=== PATIENT | male | born 1945 | race Caucasian/White ===

== ENCOUNTER 2017-10-04 21:47 | Inpatient (IN) | payer OTHER ==
--- NOTE | 2017-10-04 21:51 | PDOC ---
History of Present Illness - General Chief Complaint: Respiratory Stated Complaint: FEVER AND WEAK Time Seen by Provider: 10/04/17 21:51 History Source: Patient Exam Limitations: No Limitations - History of Present Illness Initial Comments: 10/04/17 22:04 This is a 72-year-old male who comes in with his son for evaluation of fever. Patient has had fever 1 day today. Patient is primary Armenian-speaking and history is primarily by the son. Patient lives with his and not the son. Patient denies any complaints other than fever. Patient denies any cough, congestion, frequency, dysuria, back pain, flank pain, abdominal pain, nausea, vomiting or diarrhea. Patient has history significant for hypertension, high cholesterol, and diabetes. Patient takes metformin. Patient is on Coumadin status post valve replacement. PAST MEDICAL HISTORY: no significant history PAST SURGICAL HISTORY: Heart valve replacement and pacemaker many years ago greater than 10 years ago FAMILY HISTORY: no pertinant history SOCIAL HISTORY: Pt lives with family and is employed. MEDICATIONS: reviewed ALLERGIES: As per nursing notes Review of Systems General: No fevers or chills, no weakness, no weight loss HEENT: No change in vision. No sore throat,. No ear pain CardioVascular: No chest pain or shortness of breath Respiratory:No cough, or wheezing. Gastrointestinal: no nausea, vomitting, diarrhea or constipation, No rectal bleeding Genitourinary: No dysuria, hematuria, or frequency Musculoskeletal: No joint or muscle pain or swelling Neurologic: No headache, vertigo, dizziness or loss of consciousness Psychiatric: nor depression Skin: No rashes or easy bruising Endocrine: no increased thirst or abnormal weight change Allergic: no skin or latex allergy All other systems reviewed and normal Exam: General: Well-nourished well-developed individual, no acute distress HEENT: Throat: Normal, tonsils normal, no erythema or exudate Neck: Supple, no meningeal signs, no lymphadenopathy Eyes::Pupils equal reactive and round, extraocular motion intact Chest: Nontender to palpation Cardiac: S1-S2 normal, regular rate and rhythm, no murmurs rubs or gallops Respiratory: Lungs clear to auscultation bilateral Abdomen: Soft, nondistended, normal bowel sounds, nontender to palpation diffusely Extremities: Warm, dry, no cyanosis, clubbing, or edema Skin: On patient's back There are multiple superficial skin abscesses none of which appear to be more than just a pimple. None of them have any tenderness, discharge or fluctuance on palpation Neuro: Alert and oriented x3, CN II - XII intact, nonfocal exam with normal strength, normal sensation, normal reflexes, normal gait, Psych: Normal mood and affect Medical decision making: This is a 72-year-old diabetic patient with history of fever times today. Patient had a fever of 101.5 orally in the emergency room. Patient had taken some Motrin approximately 4 hours prior to coming in. Patient otherwise denied any complaints. Workup initiated including: CBC, comp metabolic profile, EKG, chest x-ray, PT as patient is on warfarin, blood cultures, urinalysis and urine culture. Chest x-ray shows no acute pathology, there is cardiomegaly with some mild pulmonary vascular congestion EKG shows sinus rhythm at a rate of 68 with first-degree AV block. In addition to that there is inverted T's in V3 through V8, possible lateral ischemia. The QT is prolonged as well. Assessment and plan: This is a 72-year-old male who comes in with fever of unknown origin. Patient had a workup that had a normal white count the differential was still pending at this time. Patient's chemistries showed a sodium of 129 and a glucose of 276 otherwise were unremarkable specifically there is no anion gap and the bicarbonate was normal. Patient is on Coumadin because of his heart valve replacement. Patient's INR was 16.4. \ Patient will be placed in an observation telemetry bed to the hospitalist service Dr. Reza will be the admitting doctor. Diagnoses includes hyponatremia, hyperglycemia and fever of unknown origin. 10/04/17 23:07 Past History - Past Medical History Allergies/Adverse Reactions: Allergies Allergy/AdvReac Type Severity Reaction Status Date / Time No Known Allergies Allergy Verified 10/04/17 21:55 Home Medications: Ambulatory Orders Ibuprofen [Advil -] 400 mg PO BID PRN 10/04/17 Memantine HCl [Namenda Xr] 7 mg PO DAILY 10/04/17 Metformin HCl [Glucophage] 1,000 mg PO DAILY 10/04/17 Metoprolol Succinate [Toprol Xl -] 50 mg PO DAILY 10/04/17 Pravastatin Sodium [Pravachol (Nf)] 20 mg PO DAILY 10/04/17 Warfarin Na [Coumadin] 3 mg PO HS 10/04/17 Cardiac Disorders: Yes Diabetes: Yes HTN: Yes - Surgical History Cardiac Surgery: Yes (pacemaker) - Suicide/Smoking/Psychosocial Hx Smoking Status: No Smoking History: Former smoker Number of Cigarettes Smoked Daily: 0 ED Treatment Course - LABORATORY CBC & Chemistry Diagram: 10/04/17 22:05 10/04/17 22:05 *DC/Admit/Observation/Transfer Diagnosis at time of Disposition: Fever, unknown origin - Discharge Dispostion Condition at time of disposition: Fair Admit: Yes - Referrals Referrals: Alan Carballo [Primary Care Provider] - - Patient Instructions - Post Discharge Activity
[2017-10-04] MEDS ORDERED: ACETAMINOPHEN 500 MG TABLET (FP) PO ONE (22:00)
[2017-10-04] MEDS ORDERED: SODIUM CHLORIDE 1,000 ML IV ONE (22:08)
[2017-10-04 22:19] LABS: PH,URINE 5.5 (4.5-8); URINE APPEARANCE Clear; URINE BILIRUBIN 1+ (NEGATIVE); URINE BLOOD 1+ (NEGATIVE); URINE COLOR YELLOW; URINE GLUCOSE (UA) 1+ (NEGATIVE); URINE KETONE 1+ (NEGATIVE); URINE LEUK ESTERASE Negative (NEGATIVE); URINE NITRITE Negative (NEGATIVE); URINE PROTEIN 2+ (NEGATIVE); URINE UROBILINOGEN 0.2 (0.2-1.0)
[2017-10-04 22:27] LABS: MCH 29.8 pg (25.7-33.7); MCHC 32.6 g/dl (32.0-35.9); MEAN CELL VOLUME 91.2 fl (80-96); PLATELET COUNT 158 K/MM3 (134-434); RDW 12.8 % (11.9-15.9); WHITE BLOOD COUNT 9.4 K/mm3 (4.0-10.8)
[2017-10-04 22:33] LABS: INR 1.64 (0.82-1.09); PROTHROMBIN TIME (PATIENT) 18.2 SEC (10.2-13.0)
[2017-10-04 22:37] LABS: ALK PHOS 70 U/L (32-92); ANION GAP 9 (8-16); BILIRUBIN,TOTAL 0.8 mg/dl (0.2-1.0); CALCIUM 8.5 mg/dl (8.4-10.2); CO2 21 mmol/L (22-28); GLUCOSE,RANDOM 276 mg/dl (74-106); SGOT/AST 29 U/L (10-42); SGPT/ALT 23 U/L (10-40); TOT PROT 6.7 g/dl (6.4-8.3)
[2017-10-04 22:51] LABS: TROPONIN I (DFP) 0.03 ng/ml (0.03-0.50)
[2017-10-04 22:54] LABS: URINE MUCUS 1+
[2017-10-05 00:05] VITALS: BMI 19.9
[2017-10-05] MEDS ORDERED: VANCOMYCIN 1,000 MG in DEXTROSE 5%-WATER - 250 ML IVPB ONE (00:53)
[2017-10-05] MEDS ORDERED: GENTAMICIN 80 MG PREMIXED IVPB 80 MG/100 ML BAG IVPB ONE (00:59)
[2017-10-05] MEDS ORDERED: CEFEPIME HCL 2 GM VIAL (RESTRICTED TO ID) IVPB ONE (01:02)
[2017-10-05] MEDS ORDERED: SODIUM CHLORIDE 1,000 ML IV SCH (01:15)
[2017-10-05] MEDS: WARFARIN NA 2 MG TABLET (UD) PO SCH ×2 (01:24→18:34)
--- NOTE | 2017-10-05 01:51 | HP ---
CHIEF COMPLAINT: fever PCP: Haris HISTORY OF PRESENT ILLNESS: This is a 72 year old male with a history of bioprosthetic valve placement over 10 years ago who presented to the ED with fever x 1 day. Son states he spoke to father Thursday evening and he was fine/in his usual state of health. Pt denies any other complaints. Patient denies any cough, congestion, frequency, dysuria, back pain, flank pain, abdominal pain, nausea, vomiting or diarrhea. ER course was notable for: (1) WBC 9.4, 22% bands (2) Temp 101.5 (3) BGM 276 Recent Travel: pt denies PAST MEDICAL HISTORY: DM, HLD, HTN, dementia PAST SURGICAL HISTORY: bioprosthetic valve and PPM placement >10y ago Social History: Smoking: pt denies Alcohol: pt denies Drugs: pt denies Family History: unk Allergies No Known Allergies Allergy (Verified 10/04/17 21:55) HOME MEDICATIONS: 3 Medication Instructions Recorded Ibuprofen [Advil -] 400 mg PO BID PRN 10/04/17 Metformin HCl [Glucophage] 1,000 mg PO DAILY 10/04/17 Metoprolol Succinate [Toprol Xl -] 50 mg PO DAILY 10/04/17 Pravastatin Sodium [Pravachol (Nf)] 20 mg PO DAILY 10/04/17 Warfarin Na [Coumadin] 3 mg PO HS 10/04/17 REVIEW OF SYSTEMS CONSTITUTIONAL: Present: fever, chills Absent: diaphoresis, generalized weakness, malaise, loss of appetite, weight change HEENT: Absent: rhinorrhea, nasal congestion, throat pain, throat swelling, difficulty swallowing, mouth swelling, ear pain, eye pain, visual changes CARDIOVASCULAR: Absent: chest pain, syncope, palpitations, irregular heart rate, lightheadedness , peripheral edema RESPIRATORY: Absent: cough, shortness of breath, dyspnea with exertion, orthopnea, wheezing, stridor, hemoptysis GASTROINTESTINAL: Absent: abdominal pain, abdominal distension, nausea, vomiting, diarrhea, constipation, melena, hematochezia GENITOURINARY: Absent: dysuria, frequency, urgency, hesitancy, hematuria, flank pain, genital pain MUSCULOSKELETAL: Absent: myalgia, arthralgia, joint swelling, back pain, neck pain SKIN: Absent: rash, itching, pallor HEMATOLOGIC/IMMUNOLOGIC: Absent: easy bleeding, easy bruising, lymphadenopathy, frequent infections ENDOCRINE: Absent: unexplained weight gain, unexplained weight loss, heat intolerance, cold intolerance NEUROLOGIC: Absent: headache, focal weakness or paresthesias, dizziness, unsteady gait, seizure, mental status changes, bladder or bowel incontinence PSYCHIATRIC: Absent: anxiety, depression, suicidal or homicidal ideation, hallucinations. PHYSICAL EXAMINATION Vital Signs - 24 hr 3 10/04/17 10/04/17 10/04/17 10/05/17 21:48 22:49 23:18 00:22 Temperature 101.5 F H 99.5 F 99.5 F 98.6 F Pulse Rate 79 59 L Pulse Rate [ 68 Left] Respiratory 18 18 18 17 Rate Blood Pressure 94/52 109/45 Blood Pressure 105/49 [Right] O2 Sat by Pulse 95 95 95 95 Oximetry (%) GENERAL: Awake, alert, and fully oriented, in no acute distress. appears pale and weak, unable to sit up on own HEAD: Normal with no signs of trauma. EYES: Pupils equal, round and reactive to light, extraocular movements intact, sclera anicteric, conjunctiva clear. No lid lag. EARS, NOSE, THROAT: Ears normal, TMs clear, good light reflex, nares patent, oropharynx clear without exudates. Moist mucous membranes. NECK: Normal range of motion, supple without lymphadenopathy, JVD, or masses. LUNGS: Breath sounds equal, clear to auscultation bilaterally. No wheezes, and no crackles. No accessory muscle use. HEART: Regular rate and rhythm, normal S1 and S2 without rub or gallop. + murmur 2/6 loudest 2nd&3rd ICS LSB ABDOMEN: Soft, nontender, not distended, normoactive bowel sounds, no guarding, no rebound, no masses. No hepatomegaly or splenomegaly. MUSCULOSKELETAL: Normal range of motion at all joints. No bony deformities or tenderness. No CVA tenderness. UPPER EXTREMITIES: 2+ pulses, warm, well-perfused. No cyanosis. No clubbing. No peripheral edema. LOWER EXTREMITIES: 2+ pulses, warm, well-perfused. No calf tenderness. No peripheral edema. NEUROLOGICAL: Cranial nerves II-XII intact. Normal speech. Normal gait. PSYCHIATRIC: Cooperative. Good eye contact. Appropriate mood and affect. SKIN: Warm, dry, normal turgor, no rashes noted, normal capillary refill. healed or healing lesions noted to lower back, scab noted over left 4th finger distal PIP, surrouding skin with mild erythema, no tenderness or fluctuance noted. no splinter hemorrhages of nail beds or petechiae noted. Laboratory Results - last 24 hr 3 10/04/17 10/04/17 10/04/17 10/05/17 22:05 22:05 22:05 00:19 WBC 9.4 RBC 3.88 L Hgb 11.5 L Hct 35.4 MCV 91.2 MCH 29.8 MCHC 32.6 RDW 12.8 Plt Count 158 MPV 8.0 Neutrophils % Auto V[employer] Top Installer Neutrophils % (Manual) 71.0 Band Neutrophils % 22.0 H Lymphocytes % Auto [employer]er Lymphocytes % (Manual) 5.0 L Monocytes % Auto [employer] Top Installer Monocytes % (Manual) 1 L Eosinophils % Auto [employer]er Eosinophils % (Manual) 1.0 Basophils % Auto [employer] Installer PT with INR 18.2 H INR 1.64 H Sodium 129 L Potassium 4.0 Chloride 99 Carbon Dioxide 21 L Anion Gap 9 BUN 24 H Creatinine 1.0 Creat Clearance w eGFR > 60 POC Glucometer 255 Random Glucose 276 H Calcium 8.5 Total Bilirubin 0.8 AST 29 ALT 23 Alkaline Phosphatase 70 Creatine Kinase 97 Troponin I 0.03 Total Protein 6.7 Albumin 3.0 L Urine Color Urine Appearance Urine pH Ur Specific [place] Urine Protein Urine Glucose (UA) Urine Ketones Urine Blood Urine Nitrite Urine Bilirubin Urine Urobilinogen Ur Leukocyte Esterase Urine RBC Urine WBC Ur Epithelial Cells Amorphous Urates Urine Casts Urine Mucus 3 Urine Color Yellow 10/04/17 22:05 Urine Appearance Clear 10/04/17 22:05 Urine pH 5.5 (4.5-8) 10/04/17 22:05 Ur Specific [place] 1.025 (1.005-1.025) 10/04/17 22:05 Urine Protein 2+ (NEGATIVE) H 10/04/17 22:05 Urine Glucose (UA) 1+ (NEGATIVE) H 10/04/17 22:05 Urine Ketones 1+ (NEGATIVE) H 10/04/17 22:05 Urine Blood 1+ (NEGATIVE) H 10/04/17 22:05 Urine Nitrite Negative (NEGATIVE) 10/04/17 22:05 Urine Bilirubin 1+ (NEGATIVE) H 10/04/17 22:05 Ur Leukocyte Esterase Negative (NEGATIVE) 10/04/17 22:05 Urine RBC 4-6 /hpf (0-3) 10/04/17 22:05 Urine WBC 5-10 (0-2) 10/04/17 22:05 Ur Epithelial Cells 3-5 /HPF 10/04/17 22:05 Urine Mucus 1+ 10/04/17 22:05 ECG sinus rhythm with sinus arrhythmia with 1st degree AV block vent rate 68, QTC 489-prolonged ST and marked T wave abnormality: TWI lead 2,3,aVF, V3-V6 Radiology Reports CXR-no obvious infiltrates or effusions, report pending ASSESSMENT/PLAN: 72yM with PMH DM, HTN, HLD, Aflutter, bioprosthetic valve and PPM placement presented to the ED with fever and shaking chills without any other symptoms. Fever - given history of bioprosthetic valve and lack of other symptoms will treat for suspected endocarditis - echo in am - rapid flu pending - tylenol for fever PRN - received 1L NS @ 200cc/hr, will start 100cc/hr - lactic acid pending hyponatremia - ? r/t dehydration due to insensible losses - repeat bmp now, cont IVF DM - hold metformin while inpatient - BGM TIDAC and HS with novolog sliding scale HTN - cont home toprol HLD - home pravachol to be changed to formulary lipitor afib/flutter - in sinus rhythm now - coumadin subtherapeutic- will increase dose to 4mg and check INR daily DVT PPX - pt currently admitted to OBS, expected LOS <48, defer PPX FEN - NS @ 100cc/hr - BMP in am - Diabetic diet in am Dispo: Pt currently requires inpatient observation for management of his emergent condition. Visit type - Emergency Visit Emergency Visit: Yes ED Registration Date: 10/04/17 Care time: The patient presented to the Emergency Department on the above date and was hospitalized for further evaluation of their emergent condition. - New Patient This patient is new to me today: Yes Date on this admission: 10/05/17 - Critical Care Critical Care patient: No
[2017-10-05 02:24] LABS: ANION GAP 11 (8-16); CALCIUM 7.3 mg/dL (8.5-10.1); CO2 22 mmol/L (21-32); CREATININE 1.2 mg/dL (0.7-1.3); GLUCOSE,RANDOM 235 mg/dL (74-106)
[2017-10-05 02:34] LABS: TROPONIN I 0.05 ng/ml (0.00-0.05)
[2017-10-05] MEDS ORDERED: POTASSIUM CHLORIDE TABS 20 MEQ TABLET.ER (FP) PO ONE (02:54)
[2017-10-05] MEDS: ACETAMINOPHEN 325 MG TABLET (FP) PO PRN ×3 (03:13→21:36)
[2017-10-05] MEDS ORDERED: INSULIN (NOVOLOG) ASPART 100 UNITS/ML 10ML VIAL ONE ×2 (06:41→12:24)
[2017-10-05] MEDS: INSULIN SLIDING SCALE (NOVOLOG) 1 VIAL SQ SCH ×4 (06:47→22:01)
--- NOTE | 2017-10-05 08:08 | PN ---
Physical Exam: SUBJECTIVE: Patient seen and examined, confused appears comfortable, denies any pain OBJECTIVE: patient is 72y/o male with a past medical history of DM, HLD, HTN, dementia. patient was admitted from the emergency department for fever of unknown origin Vital Signs Period Temp Pulse Resp BP Sys/Tan Pulse Ox Last 24 Hr 98.6 F-101.5 F 59-79 17-18 94-109/45-52 95-96 GENERAL: The patient is awake, alert, and fully oriented, in no acute distress. HEAD: Normal with no signs of trauma. EYES: PERRL, extraocular movements intact, sclera anicteric, conjunctiva clear. No ptosis. ENT: Ears normal, nares patent, oropharynx clear without exudates, dry mucous membranes. NECK: Trachea midline, full range of motion, supple. LUNGS: Breath sounds equal, clear to auscultation bilaterally, no wheezes, no crackles, no accessory muscle use. HEART: iregular rate and rhythm, S1, S2, 3/6 systolic murmur, rub or gallop. ABDOMEN: Soft, nontender, nondistended, normoactive bowel sounds, no guarding, no rebound, no hepatosplenomegaly, no masses. EXTREMITIES: 2+ pulses, warm, well-perfused, no edema. NEUROLOGICAL: Cranial nerves II through XII grossly intact. Normal speech, gait not observed. PSYCH: Normal mood, normal affect. SKIN: Warm, dry, normal turgor, no rashes or lesions noted Laboratory Results - last 24 hr CBC WBC 7.9 K/mm3 (4.0-10.8) 10/05/17 07:30 RBC 3.91 M/mm3 (4.00-5.60) L 10/05/17 07:30 Hgb 12.2 GM/dl (11.7-16.9) 10/05/17 07:30 Hct 35.8 % (35.4-49) 10/05/17 07:30 MCV 91.4 fl (80-96) 10/05/17 07:30 MCH 31.1 pg (25.7-33.7) 10/05/17 07:30 MCHC 34.0 g/dl (32.0-35.9) 10/05/17 07:30 RDW 12.8 % (11.9-15.9) 10/05/17 07:30 Plt Count 100 K/MM3 (134-434) L D 10/05/17 07:30 MPV 7.9 fl (7.5-11.1) 10/05/17 07:30 Neutrophils % 94.3 % (42.8-82.8) H 10/05/17 07:30 Neutrophils % (Manual) 71.0 % (42.8-82.8) 10/04/17 22:05 Band Neutrophils % 22.0 % (0-10) H 10/04/17 22:05 Lymphocytes % 2.5 % (8-40) L 10/05/17 07:30 Lymphocytes % (Manual) 5.0 % (8-40) L 10/04/17 22:05 Monocytes % 3.1 % (3.8-10.2) L 10/05/17 07:30 Monocytes % (Manual) 1 % (3.8-10.2) L 10/04/17 22:05 Eosinophils % 0.1 % (0-4.5) 10/05/17 07:30 Eosinophils % (Manual) 1.0 % (0-4.5) 10/04/17 22:05 Basophils % 0.0 % (0-2.0) 10/05/17 07:30 ESR 81 mm/hr (0-20) H 10/05/17 07:30 CMP Sodium 129 mmol/L (136-145) L 10/05/17 07:30 Potassium 3.7 mmol/L (3.5-5.1) 10/05/17 07:30 Chloride 100 mmol/L (98-107) 10/05/17 07:30 Carbon Dioxide 20 mmol/L (22-28) L 10/05/17 07:30 Anion Gap 9 (8-16) 10/05/17 07:30 BUN 34 mg/dl (7-18) H D 10/05/17 07:30 Creatinine 1.5 mg/dl (0.6-1.3) H D 10/05/17 07:30 Creat Clearance w eGFR > 60 (>60) 10/04/17 22:05 POC Glucometer 241 UNITS (80-120) 10/05/17 12:20 Random Glucose 233 mg/dl (74-106) H 10/05/17 07:30 Lactic Acid 2.0 mmol/L (0.4-2.0) 10/05/17 01:17 Calcium 8.0 mg/dl (8.4-10.2) L 10/05/17 07:30 Phosphorus 2.2 mg/dl (2.5-4.6) L 10/05/17 07:30 Magnesium 1.6 mg/dL (1.8-2.4) L 10/05/17 07:30 Total Bilirubin 0.8 mg/dl (0.2-1.0) 10/04/17 22:05 AST 29 U/L (10-42) 10/04/17 22:05 ALT 23 U/L (10-40) 10/04/17 22:05 Alkaline Phosphatase 70 U/L (32-92) 10/04/17 22:05 Creatine Kinase 122 IU/L (39-308) 10/05/17 07:30 Troponin I 0.10 ng/ml (0.03-0.50) D 10/05/17 07:30 C-Reactive Protein 15.9 MG/DL (0.00-0.3) H 10/05/17 07:30 Total Protein 6.7 g/dl (6.4-8.3) 10/04/17 22:05 Albumin 3.0 g/dl (3.5-5.0) L 10/04/17 22:05 Active Medications Generic Name Dose Route Start Last Admin Trade Name Freq PRN Reason Stop Dose Admin Acetaminophen 650 mg 10/05/17 01:05 10/05/17 03:13 Tylenol - PO 650 mg Q4H PRN Administration FEVER OR PAIN Atorvastatin Calcium 10 mg 10/05/17 22:00 Lipitor - PO HS [facility] Sodium Chloride 1,000 mls @ 100 mls/hr 10/05/17 01:15 10/05/17 01:20 Normal Saline - IV 100 mls/hr ASDIR KRISTEN Administration Insulin Aspart 1 vial 10/05/17 22:00 Novolog Vial Sliding Scale - SQ HS KRISTEN Protocol Insulin Aspart 1 vial 10/05/17 07:00 10/05/17 06:47 Novolog Vial Sliding Scale - SQ 3 units TIDAC KRISTEN Administration Protocol Metoprolol Succinate 50 mg 10/05/17 10:00 Toprol Xl - PO DAILY KRISTEN Warfarin Sodium 4 mg 10/05/17 01:00 10/05/17 01:24 Coumadin - PO 4 mg DAILY@1800 KRISTEN Administration ekg sinus rhythm with sinus arrhythmia with 1st degree AV block vent rate 68, QTC 489-prolonged ST and marked T wave abnormality: TWI lead 2,3,aVF, V3-V6 Radiology Reports CXR-no obvious infiltrates or effusions, report pending ASSESSMENT/PLAN: 72yM with PMH DM, HTN, HLD, Aflutter, bioprosthetic valve and PPM placement presented to the ED with fever and shaking chills without any other symptoms. 1) heme Fever - pending echo, continue vanc and cefepipime given history of bioprosthetic valve - lactic acid wnl, pt afebrile no leukocytosis noted thrombocytopenia - likely secondary to sepsis, f/u blood cultures - ID, Dr Harry consulted and followed 2) cardiovascular afib (parosysmal) - continue toprol and coumadin hld - continue lipitor 3) niddm - fingersticks achs 4) f/e/n hyponatremia - corrected serum sodium 132, secondary to hypovolemia - continue ns @75ml.hr DVT PPX - pt currently admitted to OBS, expected LOS <48, defer PPX Dispo: Pt currently requires inpatient observation for management of his emergent condition. Visit type - Emergency Visit Emergency Visit: Yes ED Registration Date: 10/04/17 Care time: The patient presented to the Emergency Department on the above date and was hospitalized for further evaluation of their emergent condition. - New Patient This patient is new to me today: Yes Date on this admission: 10/05/17 - Critical Care Critical Care patient: No - Discharge Referral Referred to [facility] Med P.C.: Yes
[2017-10-05 08:25] LABS: ANION GAP 9 (8-16); CO2 20 mmol/L (22-28); CREATININE 1.5 mg/dl (0.6-1.3); GLUCOSE,RANDOM 233 mg/dl (74-106); MAGNESIUM 1.6 mg/dL (1.8-2.4); PHOSPHOROUS 2.2 mg/dl (2.5-4.6)
[2017-10-05 08:28] LABS: INR 1.93 (0.82-1.09); PROTHROMBIN TIME (PATIENT) 21.3 SEC (10.2-13.0)
--- NOTE | 2017-10-05 08:33 | EKG ---
Test Reason : Blood Pressure : / mmHG Vent. Rate : 068 BPM Atrial Rate : 068 BPM P-R Int : 300 ms QRS Dur : 084 ms QT Int : 460 ms P-R-T Axes : 108 084 -81 degrees QTc Int : 489 ms SINUS RHYTHM WITH SINUS ARRHYTHMIA WITH 1ST DEGREE A-V BLOCK PROLONGED QT ABNORMAL ECG WHEN COMPARED WITH ECG OF 26-AUG-2013 01:28, Ventricular pacing IS NO LONGER PRESENT VA INTERVAL HAS INCREASED T WAVE INVERSION NOW EVIDENT IN INFERIOR LEADS T WAVE INVERSION MORE EVIDENT IN ANTEROLATERAL LEADS Confirmed by JORGITO MIRAMONTES, TWYLA ([id number]) on 10/05/2017 8:33:12 AM Referred By: DR GARRISON Confirmed By:TWYLA BULL MD
[2017-10-05 08:38] LABS: EOSINOPHIL 0.1 % (0-4.5); MCH 31.1 pg (25.7-33.7); MEAN CELL VOLUME 91.4 fl (80-96); MEAN PLT VOLUME 7.9 fl (7.5-11.1); NEUTROPHILS 94.3 % (42.8-82.8); PLATELET COUNT 100 K/MM3 (134-434); RDW 12.8 % (11.9-15.9); WHITE BLOOD COUNT 7.9 K/mm3 (4.0-10.8)
[2017-10-05] MEDS ORDERED: MAGNESIUM SULFATE 2 GM in SODIUM CHLORIDE 100 ML IVPB ONE (08:48)
[2017-10-05 09:11] LABS: TROPONIN I (DFP) 0.1 ng/ml (0.03-0.50)
[2017-10-05] MEDS ORDERED: MAGNESIUM SULF 50% (8.12 MEQ/2 ML-1 GM VIAL) IVPB ONE (09:30)
[2017-10-05] MEDS ORDERED: SODIUM PHOSPHATE IVPB ONE (10:00)
[2017-10-05] MEDS ORDERED: SODIUM CHLORIDE IVPB ONE (10:00)
--- NOTE | 2017-10-05 10:09 | PN ---
Progress Note, Physician History of Present Illness: ID Consult dictated 72 y/o diabetic male s/p valve replacement admitted with fever No obvious identifiable focus Uncontrolled DM Hyponatremia Thrombocytopenia Pending c/s empiric vancomycin/ ceftriaxone - Current Medication List Current Medications: Active Medications Acetaminophen (Tylenol -) 650 mg PO Q4H PRN PRN Reason: FEVER OR PAIN Last Admin: 10/05/17 03:13 Dose: 650 mg Atorvastatin Calcium (Lipitor -) 10 mg PO HS KRISTEN Sodium Chloride (Normal Saline -) 1,000 mls @ 100 mls/hr IV ASDIR KRISTEN Last Admin: 10/05/17 01:20 Dose: 100 mls/hr Sodium Phosphate 15 mm/ Sodium (Chloride) 250 mls @ 41.667 mls/hr IVPB ONCE ONE Stop: 10/05/17 15:59 Insulin Aspart (Novolog Vial Sliding Scale -) 1 vial SQ HS KRISTEN PRN Reason: Protocol Insulin Aspart (Novolog Vial Sliding Scale -) 1 vial SQ TIDAC KRISTEN PRN Reason: Protocol Last Admin: 10/05/17 06:47 Dose: 3 units Metoprolol Succinate (Toprol Xl -) 50 mg PO DAILY KRISTEN Warfarin Sodium (Coumadin -) 4 mg PO DAILY@1800 KRISTEN Last Admin: 10/05/17 01:24 Dose: 4 mg - Objective Vital Signs: Vital Signs Temperature 98.6 F 10/05/17 05:06 Pulse Rate 79 10/05/17 05:06 Respiratory Rate 18 10/05/17 05:06 Blood Pressure 102/49 10/05/17 05:06 O2 Sat by Pulse Oximetry (%) 95 10/05/17 01:06 Labs: CBC, BMP 10/05/17 07:30 10/05/17 07:30 INR, PTT INR 1.93 (0.82-1.09) H 10/05/17 07:30
[2017-10-05] MEDS: METOPROLOL SUCCINATE 50 MG TAB.SR.24H (FP) PO SCH (10:20)
[2017-10-05] MEDS ORDERED: CEFEPIME HCL 1 GM VIAL (RESTRICTED TO ID) IVPB SCH (10:30)
[2017-10-05] MEDS ORDERED: SODIUM CHLORIDE 0.9%/KCL 20 MEQ/1,000 ML INFUS.BAG IV SCH (11:15)
--- NOTE | 2017-10-05 11:31 | CONS ---
DATE OF CONSULTATION: HISTORY: The patient is a 72-year-old male who was evaluated for fever. History was obtained from the chart as he cannot give a reliable history. He is [place]ian-speaking. According to his lang interpreter, he appears confused. He was brought to the emergency room by family members on October 04, 2017 with a 1-day history of fever. He denied any focal complaints. A rapid influenza test was performed and was negative. In the emergency room, his temperature was 101.5. He was empirically treated with vancomycin and cefepime. No reports of shaking chills, labored breathing, cough, sputum production, hemoptysis, vomiting, diarrhea, or grossly purulent urine. According to the notes, he has a history of valve replacement. Additional details are not available. PAST MEDICAL HISTORY: Positive for diabetes mellitus, hypertension, hyperlipidemia. PAST SURGICAL HISTORY: Status post permanent pacemaker and cardiac valve replacement. Again, details not available. ALLERGIES: No known allergies. MEDICATIONS: Advair, Namenda, Glucophage, Toprol, Pravachol, Coumadin. SOCIAL HISTORY: Lives at home with family members. Former smoker. SYSTEMS REVIEW: Neurologic: No loss of consciousness, seizure activity, focal weakness. Cardiac: Negative chest pain or palpitations. Respiratory: Negative cough or sputum production. Gastrointestinal: Negative vomiting or diarrhea. Genitourinary: Negative for urinary tract infection. LABORATORY DATA: White count 7.9, neutrophils 94, lymphocytes 2, monocytes 3. Hematocrit 35.8, platelet count 100, BUN 34, creatinine 1.5. Urinalysis: 5-10 white cells. PHYSICAL EXAMINATION: General: He is awake. He appears slightly confused. Vital Signs: Temperature 98.6, T-max 101.5, blood pressure 102/48, pulse 79 and regular, respirations 18 per minute. HEENT: Sclerae anicteric. Heart: Sounds S1, S2 with a 2/6 pansystolic murmur. Lungs: Clear bilaterally. Abdomen: Soft. No tenderness elicited. There is a healed surgical scar over the sternum as well as the lower abdomen. Extremities: Negative for edema. Positive chronic venostasis dermatitis. IMPRESSION: A 72-year-old diabetic male with a history of cardiac valve replacement admitted with fever. No obvious infection focus. Workup significant for normal white count with left shift, elevated blood sugar, hyponatremia, and thrombocytopenia. Await culture results. Empiric antibiotic coverage with vancomycin and cefepime pending culture results. We will follow. Thank you for the kind referral. CONNER PENDLETON M.D. [id number]
[2017-10-05] MEDS ORDERED: PT OWN MED DRAWER 7, Y5N ONE ×2 (12:06→18:29)
[2017-10-05] MEDS: CEFEPIME 1 GM in DEXTROSE 5%-WATER - 100 ML IVPB SCH ×2 (12:09→18:34)
[2017-10-05] MEDS: VANCOMYCIN 1 GRAM (PRE-DOCKED) 1,000 MG/250 ML BAG IVPB SCH (14:44)
[2017-10-05 18:39] LABS: ANION GAP 5 (8-16); CALCIUM 7.5 mg/dl (8.4-10.2); CO2 18 mmol/L (22-28); CREATININE 1.1 mg/dl (0.6-1.3); GLUCOSE,RANDOM 103 mg/dl (74-106)
[2017-10-05 18:56] LABS: TROPONIN I (DFP) 0.07 ng/ml (0.03-0.50)
[2017-10-05] MEDS: POLYETHYLENE GLYCOL 3350 119 GM BTL PO SCH (20:27)
[2017-10-05] MEDS: ATORVASTATIN CA 10 MG TABLET (FP) PO SCH (21:36)
[2017-10-05] MEDS: SODIUM CHLORIDE 1,000 ML IV SCH (21:38)
[2017-10-05] MEDS: SODIUM CHLORIDE 0.9%/KCL 20 MEQ/1,000 ML INFUS.BAG IV SCH (22:01)
[2017-10-06] MEDS: CEFEPIME 1 GM in DEXTROSE 5%-WATER - 100 ML IVPB SCH ×3 (01:18→17:52)
[2017-10-06] MEDS: VANCOMYCIN 1 GRAM (PRE-DOCKED) 1,000 MG/250 ML BAG IVPB SCH ×2 (02:56→14:43)
[2017-10-06] MEDS: INSULIN SLIDING SCALE (NOVOLOG) 1 VIAL SQ SCH ×4 (06:42→22:32)
[2017-10-06 08:34] LABS: BASOPHIL 0.2 % (0-2.0); EOSINOPHIL 0.2 % (0-4.5); MCH 30.5 pg (25.7-33.7); MCHC 33.3 g/dl (32.0-35.9); MEAN CELL VOLUME 91.7 fl (80-96); MEAN PLT VOLUME 8.5 fl (7.5-11.1); NEUTROPHILS 89.9 % (42.8-82.8); PLATELET COUNT 83 K/MM3 (134-434); RDW 12.8 % (11.9-15.9); WHITE BLOOD COUNT 8.5 K/mm3 (4.0-10.8)
[2017-10-06 08:42] LABS: ALBUMIN 2.6 g/dl (3.5-5.0); ANION GAP 10 (8-16); BILIRUBIN,TOTAL 1.1 mg/dl (0.2-1.0); CALCIUM 7.7 mg/dl (8.4-10.2); CO2 18 mmol/L (22-28); CREATININE 0.9 mg/dl (0.6-1.3); GLUCOSE,RANDOM 233 mg/dl (74-106); MAGNESIUM 2.4 mg/dL (1.8-2.4); PHOSPHOROUS 2.2 mg/dl (2.5-4.6); SGOT/AST 38 U/L (10-42); SGPT/ALT 30 U/L (10-40); TOT PROT 6.4 g/dl (6.4-8.3)
--- NOTE | 2017-10-06 08:51 | PN ---
Physical Exam: SUBJECTIVE: Patient seen and examined, confused appears comfortable OBJECTIVE: patient is a 72 y/o male with a past medical history of HTN, HLD, and dementia, patient was admitted from the emergency department for sepsis and bacteremia. Vital Signs Period Temp Pulse Resp BP Sys/Tan Pulse Ox Last 24 Hr 99.8 F-101.8 F 73-79 18-18 95-119/47-56 96-99 GENERAL: The patient is awake, alert, and oriented times person, in no acute distress. HEAD: Normal with no signs of trauma. EYES: PERRL, extraocular movements intact, sclera anicteric, conjunctiva clear. No ptosis. ENT: Ears normal, nares patent, oropharynx clear without exudates, moist mucous membranes. NECK: Trachea midline, full range of motion, supple. LUNGS: Breath sounds equal, clear to auscultation bilaterally, no wheezes, no crackles, no accessory muscle use. HEART: Regular rate and rhythm, S1, S2, 3/6 systolic murmur, rub or gallop. ABDOMEN: Soft, nontender, nondistended, normoactive bowel sounds, no guarding, no rebound, no hepatosplenomegaly, no masses. EXTREMITIES: 2+ pulses, warm, well-perfused, no edema. NEUROLOGICAL: Cranial nerves II through XII grossly intact. Normal speech, gait not observed. PSYCH: Normal mood, normal affect. SKIN: Warm, dry, normal turgor, crusted papules to distal lower extremities, papules to lower back, no rashes or lesions noted Laboratory Results - last 24 hr 10/05/17 10/06/17 20:40 08:10 WBC 8.5 RBC 3.96 L Hgb 12.1 Hct 36.3 MCV 91.7 MCH 30.5 MCHC 33.3 RDW 12.8 Plt Count 83 L MPV 8.5 Neutrophils % 89.9 H Lymphocytes % 4.6 L D Monocytes % 5.1 Eosinophils % 0.2 D Basophils % 0.2 D ESR Sodium l Potassium Chloride Carbon Dioxide Anion Gap BUN Creatinine POC Glucometer Random Glucose Serum Osmolality Calcium Creatine Kinase Troponin I C-Reactive Protein Urine Osmolality Ur Random Sodium Urine Creatinine 123.0 CMP Sodium 128 mmol/L (136-145) L 10/06/17 08:10 Potassium 4.2 mmol/L (3.5-5.1) 10/06/17 08:10 Chloride 100 mmol/L (98-107) 10/06/17 08:10 Carbon Dioxide 18 mmol/L (22-28) L 10/06/17 08:10 Anion Gap 10 (8-16) 10/06/17 08:10 BUN 30 mg/dl (7-18) H 10/06/17 08:10 Creatinine 0.9 mg/dl (0.6-1.3) 10/06/17 08:10 Creat Clearance w eGFR > 60 (>60) 10/06/17 08:10 POC Glucometer 248 UNITS (80-120) 10/06/17 11:21 Random Glucose 233 mg/dl (74-106) H D 10/06/17 08:10 Serum Osmolality 279 mosm/kg (278-305) 10/05/17 18:00 Lactic Acid 2.0 mmol/L (0.4-2.0) 10/05/17 01:17 Calcium 7.7 mg/dl (8.4-10.2) L 10/06/17 08:10 Phosphorus 2.2 mg/dl (2.5-4.6) L 10/06/17 08:10 Magnesium 2.4 mg/dL (1.8-2.4) D 10/06/17 08:10 Total Bilirubin 1.1 mg/dl (0.2-1.0) H D 10/06/17 08:10 AST 38 U/L (10-42) D 10/06/17 08:10 ALT 30 U/L (10-40) D 10/06/17 08:10 Alkaline Phosphatase 70 U/L (32-92) 10/04/17 22:05 Creatine Kinase 101 IU/L (39-308) 10/06/17 08:10 Troponin I 0.05 ng/ml (0.03-0.50) 10/06/17 08:10 C-Reactive Protein 15.9 MG/DL (0.00-0.3) H 10/05/17 07:30 B-Natriuretic Peptide 2407.21 pg/ml (5-125) H 10/06/17 08:10 Total Protein 6.4 g/dl (6.4-8.3) 10/06/17 08:10 Albumin 2.6 g/dl (3.5-5.0) L 10/06/17 08:10 Active Medications Generic Name Dose Route Start Last Admin Trade Name [place] PRN Reason Stop Dose Admin Acetaminophen 650 mg 10/05/17 01:05 10/05/17 21:36 Tylenol - PO 650 mg Q4H PRN Administration FEVER OR PAIN Atorvastatin Calcium 10 mg 10/05/17 22:00 10/05/17 21:36 Lipitor - PO 10 mg HS KRISTEN Administration Vancomycin HCl 1,000 mg in 250 mls @ 200 mls/hr 10/05/17 15:00 10/06/17 02:56 Vancomycin (Pre-Docked) IVPB 200 mls/hr BID@0300,1500 KRISTEN Administration Cefepime HCl 1 gm/ Dextrose 100 mls @ 200 mls/hr 10/05/17 11:00 10/06/17 01: 18 IVPB 200 mls/hr Q8H-IV KRISTEN Administration Potassium Chloride/Sodium Chloride 20 meq in 1,000 mls @ 100 mls/hr 10/05/17 19:39 10/05/17 22:01 Ns+20 Meq Kcl - IV Not Given ASDIR KRISTEN Sodium Chloride 1,000 mls @ 50 mls/hr 10/05/17 20:22 10/05/17 21:38 Normal Saline - IV 50 mls/hr ASDIR KRISTEN Administration Insulin Aspart 1 vial 10/05/17 22:00 10/05/17 22:01 Novolog Vial Sliding Scale - SQ Not Given HS [facility] Protocol Insulin Aspart 1 vial 10/05/17 07:00 10/06/17 06:42 Novolog Vial Sliding Scale - SQ 3 units TIDAC KRISTEN Administration Protocol Metoprolol Succinate 50 mg 10/05/17 10:00 10/05/17 10:20 Toprol Xl - PO 50 mg DAILY KRISTEN Administration Polyethylene Glycol 17 gm 10/05/17 20:00 10/05/17 20:27 Miralax (For Daily Use) - PO 17 gm DAILY KRISTEN Administration Warfarin Sodium 4 mg 10/05/17 01:00 10/05/17 18:34 Coumadin - PO 4 mg DAILY@1800 KRISTEN Administration Microbiology 10/04/17 22:05 Urine - Urine Clean Catch Urine Culture - Preliminary Staphylococcus Latex Coag Pos 10/04/17 22:05 Blood - Peripheral Venous Blood Culture - Preliminary Presumptive Mssa (Pbp2a Neg) 10/04/17 22:05 Blood - Peripheral Venous Blood Culture - Preliminary Presumptive Mssa (Pbp2a Neg) 10/05/17 00:20 Nasopharyngeal Swab Influenza Types A,B Antigen (JERONIMO) - Final 10/05/17 00:20 Nasopharyngeal Swab - Final ekg sinus rhythm with sinus arrhythmia with 1st degree AV block vent rate 68, QTC 489-prolonged ST and marked T wave abnormality: TWI lead 2,3,aVF, V3-V6 Radiology Reports CXR-no obvious infiltrates or effusions ct of chest: bilateral opacities in both lung bases, likely atelactasis, small left pleural effusion ct of abdomen/pelvis: hepatic steatiosis, enlarged prostate, moderate fecal retention. ASSESSMENT/PLAN: 72yM with PMH DM, HTN, HLD, Aflutter, bioprosthetic valve and PPM placement presented to the ED with fever and shaking chills without any other symptoms. 1) ID bacteremia - prelim blood cultures x 2, + mssa awaiting final to narrow down abx, continue vanc and cefepime - tmax 101.8, no leukocytosis noted, monitor cbc and fever curve - ID Dr Harry consulted and pending thrombocytopenia - likely secondary to sepsis, continue to monitor 2) cardiovascular afib (parosysmal) - continue toprol and coumadin - echo 10/05/17, lvef 55-60%, moderate aortic stenosis, bioprosthetic mitral valve ? articfact density can not exclude vegation - consulted with Dr Guzman printing machinist, pending ASHLEY, hld - continue lipitor 3) niddm - fingersticks achs 4) f/e/n hyponatremia - corrected serum sodium 131, secondary to hypovolemia continue ivf - naphos gtt ordered DVT PPX - coumadin - pt - oob - scd/kacy - pepcid Dispo: Pt currently requires inpatient admission Visit type - Emergency Visit Emergency Visit: Yes ED Registration Date: 10/06/17 Care time: The patient presented to the Emergency Department on the above date and was hospitalized for further evaluation of their emergent condition. - New Patient This patient is new to me today: No - Critical Care Critical Care patient: No - Discharge Referral Referred to [facility] Med [facility].C.: No
[2017-10-06] MEDS: ACETAMINOPHEN 325 MG TABLET (FP) PO PRN (08:52)
[2017-10-06 09:05] LABS: TROPONIN I (DFP) 0.05 ng/ml (0.03-0.50)
[2017-10-06] MEDS ORDERED: PT OWN MED DRAWER 7, Y5N ONE ×3 (09:25→17:45)
--- NOTE | 2017-10-06 09:26 | PN ---
Progress Note, Physician History of Present Illness: OOB in chair More awake and alert today No complaints offered Febrile overnight 101.8 BC presumed MSSA - Current Medication List Current Medications: Active Medications Acetaminophen (Tylenol -) 650 mg PO Q4H PRN PRN Reason: FEVER OR PAIN Last Admin: 10/06/17 08:52 Dose: 650 mg Atorvastatin Calcium (Lipitor -) 10 mg PO HS ON LICENSE OF [facility] Last Admin: 10/05/17 21:36 Dose: 10 mg Vancomycin HCl (Vancomycin (Pre-Docked)) 1,000 mg in 250 mls @ 200 mls/hr IVPB BID@0300,1500 ON LICENSE OF [facility] Last Admin: 10/06/17 02:56 Dose: 200 mls/hr Cefepime HCl 1 gm/ Dextrose 100 mls @ 200 mls/hr IVPB Q8H-IV ON LICENSE OF [facility] Last Admin: 10/06/17 01:18 Dose: 200 mls/hr Potassium Chloride/Sodium Chloride (Ns+20 Meq Kcl -) 20 meq in 1,000 mls @ 100 mls/hr IV ASDIR ON LICENSE OF [facility] Last Admin: 10/05/17 22:01 Dose: Not Given Sodium Chloride (Normal Saline -) 1,000 mls @ 50 mls/hr IV ASDIR ON LICENSE OF [facility] Last Admin: 10/05/17 21:38 Dose: 50 mls/hr Insulin Aspart (Novolog Vial Sliding Scale -) 1 vial SQ HS ON LICENSE OF [facility] PRN Reason: Protocol Last Admin: 10/05/17 22:01 Dose: Not Given Insulin Aspart (Novolog Vial Sliding Scale -) 1 vial SQ TIDAC ON LICENSE OF [facility] PRN Reason: Protocol Last Admin: 10/06/17 06:42 Dose: 3 units Metoprolol Succinate (Toprol Xl -) 50 mg PO DAILY ON LICENSE OF [facility] Last Admin: 10/05/17 10:20 Dose: 50 mg Polyethylene Glycol (Miralax (For Daily Use) -) 17 gm PO DAILY ON LICENSE OF [facility] Last Admin: 10/05/17 20:27 Dose: 17 gm Warfarin Sodium (Coumadin -) 4 mg PO DAILY@1800 ON LICENSE OF [facility] Last Admin: 10/05/17 18:34 Dose: 4 mg - Objective Vital Signs: Vital Signs Temperature 100.5 F H 10/06/17 06:00 Pulse Rate 73 10/06/17 06:00 Respiratory Rate 18 10/06/17 06:00 Blood Pressure 119/55 10/06/17 06:00 O2 Sat by Pulse Oximetry (%) 99 10/06/17 08:03 Constitutional: Yes: No Distress Cardiovascular: Yes: Regular Rate and Rhythm, Murmur, S1, S2 Respiratory: Yes: CTA Bilaterally Gastrointestinal: Yes: Normal Bowel Sounds, Soft, Abdomen, Obese Edema: No Labs: CBC, BMP 10/06/17 08:10 10/06/17 08:10 INR, PTT INR 1.93 (0.82-1.09) H 10/05/17 07:30 Assessment/Plan MSSA bacteremia/ sepsis R/O prosthetic valve endocarditis Diabetes mellitus Hyponatremia Thrombocytopenia Await final BC result Continue vancomycin/ ceftriaxone For ASHLEY Repeat BC am
[2017-10-06] MEDS: POLYETHYLENE GLYCOL 3350 119 GM BTL PO SCH (09:38)
[2017-10-06] MEDS: METOPROLOL SUCCINATE 50 MG TAB.SR.24H (FP) PO SCH (09:43)
[2017-10-06] MEDS ORDERED: SODIUM CHLORIDE IVPB ONE (10:00)
[2017-10-06] MEDS ORDERED: SODIUM PHOSPHATE IVPB ONE (10:00)
--- NOTE | 2017-10-06 10:36 | CON.CARD ---
Consult Consult Specialty:: Cardiology Referred by:: Hospitalist service Reason for Consultation:: Cardiac evaluation and for ASHLEY - History of Present Illness Chief Complaint: Bacteremia (MSSA) History of Present Illness: Patient is a 72 year old male of descent with underlying history of MVR with bioprosthetic valve replacement and PPM implant, atrial fibrillation paroxysmal currently in sinus rhythm, in addition to hypertension, hypercholesterolemia, diabetes mellitus and organic brain syndrome/dementia who presents with fever. He denies chest pain, shortness of breath or palpitations. He denies paroxysmal nocturnal dyspnea or orthopnea. He denies headache or lightheadedness. He denies nausea, vomiting, diarrhea or abdominal pain. Cardiology consultation was called for further evaluation and for ASHLEY to rule out vegetation. Patient has positive blood culture. - History Source History Provided By: Patient, Medical Record Limitations to Obtaining History: Dementia - Past Medical History [employer]ITION[employer] [facility] [employer]ACTITIONER: Yes: Dementia Cardio/Vascular: Yes: AFIB, HTN, Hyperlipdemia, Other (Mitral valve replacement with bioprosthesis) Endocrine: Yes: Diabetes Mellitus - Past Surgical History Past Surgical History: Yes: Valve Replacement - Alcohol/Substance Use Hx Alcohol Use: No - Smoking History Smoking history: Former smoker Have you smoked in the past 12 months: No Aproximately how many cigarettes per day: 0 Home Medications - Allergies Allergies/Adverse Reactions: Allergies Allergy/AdvReac Type Severity Reaction Status Date / Time No Known Allergies Allergy Verified 10/04/17 21:55 - Home Medications Home Medications: Ambulatory Orders Ibuprofen [Advil -] 400 mg PO BID PRN 10/04/17 Memantine HCl [Namenda Xr] 7 mg PO DAILY 10/04/17 Metformin HCl [Glucophage] 1,000 mg PO DAILY 10/04/17 Metoprolol Succinate [Toprol Xl -] 50 mg PO DAILY 10/04/17 Pravastatin Sodium [Pravachol (Nf)] 20 mg PO DAILY 10/04/17 Warfarin Na [Coumadin] 3 mg PO HS 10/04/17 Review of Systems - Review of Systems Cardiovascular: denies: Chest Pain, Palpitations, Shortness of Breath Respiratory: denies: Cough, Hemoptysis, Orthopnea, PND Gastrointestinal: denies: Abdominal Pain, Constipation, Diarrhea, Melena, Nausea , Rectal Bleeding, Vomiting Musculoskeletal: denies: Joint Pain Neurological: denies: Dizziness, Headache, Numbness, Seizure, Syncope Vital Signs: Vital Signs Temperature 100.7 F H 10/06/17 09:43 Pulse Rate 78 10/06/17 09:43 Respiratory Rate 18 10/06/17 09:43 Blood Pressure 142/56 10/06/17 09:43 O2 Sat by Pulse Oximetry (%) 99 10/06/17 08:03 Eyes: Yes: PERRL HENT: Yes: Atraumatic Neck: Yes: Supple Respiratory: Yes: CTA Bilaterally Gastrointestinal: Yes: Normal Bowel Sounds, Soft. No: Tenderness Cardiovascular: Yes: Regular Rate and Rhythm JVD: No Carotid Bruit: No PMI: Non-Displaced Heart Sounds: Yes: S1, S2. No: Gallop Murmur: Yes: Systolic Murmur, Grade 1 Edema: No - Other Data Labs, Other Data: CBC, BMP 10/06/17 08:10 10/06/17 08:10 INR, PTT INR 1.93 (0.82-1.09) H 10/05/17 07:30 Troponin, BNP 10/05/17 10/06/17 10/06/17 18:00 08:10 08:10 Troponin I 0.07 D 0.05 B-Natriuretic Peptide 2407.21 H Sinus rhythm with sinus arrhythmia Echo: Report Reviewed (Normal LV systolic function, mild to moderate , MVR with possible small mobile component cannot rule out vegetation) Imaging - Results Cat Scan: Report Reviewed (Chest CT ?superimposed pneumonia, underlying bronchitis, atelectasis) EKG: Report Reviewed Problem List - Problems (1) Fever Code(s): R50.9 - FEVER, UNSPECIFIED Qualifiers: Fever type: unspecified Qualified Code(s): R50.9 - Fever, unspecified (2) Hypercholesterolemia Code(s): E78.00 - PURE HYPERCHOLESTEROLEMIA, UNSPECIFIED (3) Atrial fibrillation Code(s): I48.91 - UNSPECIFIED ATRIAL FIBRILLATION Qualifiers: Atrial fibrillation type: paroxysmal Qualified Code(s): I48.0 - Paroxysmal atrial fibrillation (4) Bioprosthetic mitral valve replacement, current hospitalization Code(s): Z95.3 - PRESENCE OF XENOGENIC HEART VALVE (5) Aortic valve stenosis Code(s): I35.0 - NONRHEUMATIC AORTIC (VALVE) STENOSIS Qualifiers: Cardiac valve disease etiology: nonrheumatic Qualified Code(s): I35.0 - Nonrheumatic aortic (valve) stenosis (6) Bacteremia Code(s): R78.81 - BACTEREMIA (7) Diabetes mellitus Code(s): E11.9 - TYPE 2 DIABETES MELLITUS WITHOUT COMPLICATIONS Qualifiers: Diabetes mellitus type: type 2 Diabetes mellitus complication status: without complication Diabetes mellitus termination clerk insulin use: without termination clerk use Qualified Code(s): E11.9 - Type 2 diabetes mellitus without complications (8) HTN (hypertension) Code(s): I10 - ESSENTIAL (PRIMARY) HYPERTENSION Qualifiers: Hypertension type: essential hypertension Qualified Code(s): I10 - Essential (primary) hypertension Assessment/Plan 1. Fever with bacteremia (MSSA), rule out prosthetic endocarditis 2. MVR with bioprosthesis 3. Aortic valve stenosis 4. Paroxysmal atrial fibrillation currently in sinus and on Coumadin therapy 5. Hypertension 6. Hypercholesterolemia 7. Diabetes mellitus 8. Organic brain syndrome/dementia PLAN: 1. Antibiotic coverage as per ID service 2. Continue Metoprolol 3. Continue Coumadin and keep INR 2-3 4. Schedule for ASHLEY to rule out vegetation - tentatively on Further plans are to follow Santos Guzman MD
[2017-10-06] MEDS ORDERED: ALBUTEROL SO4 0.083% IH SOL 2.5 MG/3 ML VIAL.NEB. NEB PRN (13:57)
[2017-10-06 14:26] LABS: ALK PHOS 69 U/L (32-92)
[2017-10-06] MEDS: WARFARIN NA 2 MG TABLET (UD) PO SCH (17:52)
[2017-10-06] MEDS: FAMOTIDINE 20 MG TABLET PO SCH ×2 (17:53→22:06)
--- NOTE | 2017-10-06 18:17 | CONSULT ---
Consult Consult Specialty:: Nephrology Reason for Consultation:: hyponatremia - History of Present Illness Chief Complaint: initially presented for fever History of Present Illness: Pt is a 72 year old male who presents to the ER with fever. He has history of bioprosthetic valce, PPM, DM, HTN and hyperlipidemia. I was called to evaluate him for hyponatremia. He is being treated for sepsis and possible endocardititis. He was started on fluids and sodium began to worsen. He denies shortness of breath. He denies chest pain. He denies abdominal pain. He denies escess water intake. His family are at bedside and assisted with history as well. Fluids were stopped last night and sodium is improving. Family deny history of CHF and pt was not on diuretics at home. - History Source History Provided By: Patient, Family Member, Medical Record - Past Medical History Cardio/Vascular: Yes: AFIB, HTN, Hyperlipdemia - Past Surgical History Additional Surgical History: bioprosthetic valve - Alcohol/Substance Use Hx Alcohol Use: No - Smoking History Smoking history: Former smoker Have you smoked in the past 12 months: No Aproximately how many cigarettes per day: 0 Home Medications - Allergies Allergies/Adverse Reactions: Allergies Allergy/AdvReac Type Severity Reaction Status Date / Time No Known Allergies Allergy Verified 10/04/17 21:55 - Home Medications Home Medications: Ambulatory Orders Ibuprofen [Advil -] 400 mg PO BID PRN 10/04/17 Memantine HCl [Namenda Xr] 7 mg PO DAILY 10/04/17 Metformin HCl [Glucophage] 1,000 mg PO DAILY 10/04/17 Metoprolol Succinate [Toprol Xl -] 50 mg PO DAILY 10/04/17 Pravastatin Sodium [Pravachol (Nf)] 20 mg PO DAILY 10/04/17 Warfarin Na [Coumadin] 3 mg PO HS 10/04/17 Family Disease History - Family Disease History Family History: Denies Review of Systems - Review of Systems Constitutional: reports: Fever, Malaise Eyes: reports: No Symptoms HENT: reports: No Symptoms Neck: reports: No Symptoms Cardiovascular: reports: No Symptoms Respiratory: reports: No Symptoms Gastrointestinal: reports: No Symptoms Genitourinary: reports: No Symptoms Musculoskeletal: reports: No Symptoms Integumentary: reports: No Symptoms Neurological: reports: No Symptoms Endocrine: reports: No Symptoms Hematology/Lymphatic: reports: No Symptoms Psychiatric: reports: No Symptoms Physical Exam Vital Signs: Vital Signs Temperature 99.6 F 10/06/17 14:00 Pulse Rate 72 10/06/17 14:00 Respiratory Rate 16 10/06/17 14:00 Blood Pressure 115/57 10/06/17 14:00 O2 Sat by Pulse Oximetry (%) 96 10/06/17 14:01 Constitutional: Yes: Calm Eyes: Yes: Conjunctiva Clear HENT: Yes: Atraumatic Neck: Yes: Supple Cardiovascular: Yes: Murmur, S1, S2 Respiratory: Yes: CTA Bilaterally Gastrointestinal: Yes: Soft Renal/: Yes: WNL Musculoskeletal: Yes: WNL Edema: No Integumentary: Yes: WNL Neurological: Yes: Oriented Psychiatric: Yes: Oriented Labs: CBC, BMP 10/06/17 08:10 10/06/17 08:10 Laboratory Tests 10/04/17 10/04/17 10/05/17 22:05 22:05 01:17 WBC Sodium 129 L 135 L Potassium Random Glucose B-Natriuretic Peptide Cortisol AM Sample Urine Protein 2+ H Urine Ketones 1+ H Urine Blood 1+ H Urine Bilirubin 1+ H Urine Osmolality Ur Random Sodium 10/05/17 10/05/17 10/05/17 07:30 18:00 20:40 WBC Sodium 129 L 126 L Potassium Random Glucose B-Natriuretic Peptide Cortisol AM Sample Urine Protein Urine Ketones Urine Blood Urine Bilirubin Urine Osmolality 634 Ur Random Sodium 10/05/17 10/06/17 10/06/17 20:40 08:10 08:10 WBC 8.5 Sodium 128 L Potassium 4.2 Random Glucose 233 H D B-Natriuretic Peptide Cortisol AM Sample Urine Protein Urine Ketones Urine Blood Urine Bilirubin Urine Osmolality Ur Random Sodium 33 10/06/17 10/06/17 08:10 08:10 WBC Sodium Potassium Random Glucose B-Natriuretic Peptide 2407.21 H Cortisol AM Sample Pending Urine Protein Urine Ketones Urine Blood Urine Bilirubin Urine Osmolality Ur Random Sodium Imaging - Results Cat Scan: Report Reviewed Problem List - Problems (1) Hyponatremia Code(s): E87.1 - HYPO-OSMOLALITY AND HYPONATREMIA (2) Bacteremia Code(s): R78.81 - BACTEREMIA (3) HTN (hypertension) Code(s): I10 - ESSENTIAL (PRIMARY) HYPERTENSION (4) Diabetes mellitus Code(s): E11.9 - TYPE 2 DIABETES MELLITUS WITHOUT COMPLICATIONS (5) Fever, unknown origin Code(s): R50.9 - FEVER, UNSPECIFIED Assessment/Plan Current Medications Generic Name Dose Route Start Last Admin Trade Name Freq PRN Reason Stop Dose Admin Acetaminophen 650 mg 10/05/17 01:05 10/06/17 08:52 Tylenol - PO 650 mg Q4H PRN Administration FEVER OR PAIN Albuterol Sulfate 1 amp 10/06/17 13:57 Ventolin 0.083% Nebulizer Soln - NEB Q4H PRN SHORT OF BREATH/WHEEZING Atorvastatin Calcium 10 mg 10/05/17 22:00 10/05/17 21:36 Lipitor - PO 10 mg HS KRISTEN Administration Famotidine 20 mg 10/06/17 15:15 10/06/17 17:53 Pepcid - PO 20 mg BID KRISTEN Administration Vancomycin HCl 1,000 mg in 250 mls @ 200 mls/hr 10/05/17 15:00 10/06/17 14:43 Vancomycin (Pre-Docked) IVPB 200 mls/hr BID@0300,1500 KRISTEN Administration Cefepime HCl 1 gm/ Dextrose 100 mls @ 200 mls/hr 10/05/17 11:00 10/06/17 17: 52 IVPB 200 mls/hr Q8H-IV KRISTEN Administration Potassium Chloride/Sodium Chloride 20 meq in 1,000 mls @ 100 mls/hr 10/05/17 19:39 10/05/17 22:01 Ns+20 Meq Kcl - IV Not Given ASDIR KRISTEN Sodium Chloride 1,000 mls @ 50 mls/hr 10/05/17 20:22 10/05/17 21:38 Normal Saline - IV 50 mls/hr ASDIR KRISTEN Administration Insulin Aspart 1 vial 10/05/17 22:00 10/05/17 22:01 Novolog Vial Sliding Scale - SQ Not Given HS KRISTEN Protocol Insulin Aspart 1 vial 10/05/17 07:00 10/06/17 16:55 Novolog Vial Sliding Scale - SQ 6 units TIDAC KRISTEN Administration Protocol Metoprolol Succinate 50 mg 10/05/17 10:00 10/06/17 09:43 Toprol Xl - PO 50 mg DAILY KRISTEN Administration Polyethylene Glycol 17 gm 10/05/17 20:00 10/06/17 09:38 Miralax (For Daily Use) - PO Not Given DAILY KRISTEN Warfarin Sodium 4 mg 10/05/17 01:00 10/06/17 17:52 Coumadin - PO 4 mg DAILY@1800 [facility] Administration Laboratory Tests 10/05/17 10/05/17 10/05/17 18:00 20:40 20:40 Serum Osmolality 279 Urine Osmolality 634 Ur Random Sodium 33 Impression 1. hyponatremia 2. mssa bacteremia 3. sepsis 4. bioprosthetic heart valve 5. DM 6. HTN 7. hyperlipidemia 8. thrombocytopenia 9. hx a-fib/a-flutter 10. pleural effusions 11. hepatic steatosis Plan - corrected sodium is 130 (has improved from yesterday) - recommend stopping fluids - spoke to SENIOR CATEGORY MANAGER last night - pt has a normal serum osm - check spep - recommend holding fluids as pt has pleural effusions - follow up cultures - repeat cultures - pt for ASHLEY - consider CTS evaluation - discussed with hospitalist team earlier - discussed with nursing - cont abx per ID - repeat labs in am - will need better glucose control - discussed with family at length - will follow Dr Robertson
--- NOTE | 2017-10-06 19:16 | HOSP ---
Physical Examination Vital Signs: Vital Signs Temperature 99.6 F 10/06/17 14:00 Pulse Rate 72 10/06/17 14:00 Respiratory Rate 16 10/06/17 14:00 Blood Pressure 115/57 10/06/17 14:00 O2 Sat by Pulse Oximetry (%) 96 10/06/17 14:01 Labs: CBC, BMP 10/06/17 08:10 10/06/17 08:10 Hospitalist Encounter Assessment: Called by nursing supervisor graphite after patient's family was asking to sign patient out AMA and transfer him to [facility] I spoke to Patient's daughter Nasra Ocampo (via telephone) at length about current diagnosis and treatment and importance of keeping patient in the hospital for IV antibiotics through the night and Cardiology with ID follow up tomorrow. Discussed POC and goals with daughter and asked her to reconsider signing patient out AMA as patient is high risk for sudden if the family and pt sign out Pleaded with Nasra Ocampo to consider this decision as it is NOT in patient's best interest to be taken out of the hospital tonight. Told her that there is no guarantee patient will have a bed available at [facility] and its best for the family to speak with the primary provider, teradata solution architect and ID specialist tomorrow about possible transfer. Daughter and family to discuss further.
[2017-10-06] MEDS: SODIUM CHLORIDE 1,000 ML IV SCH (20:09)
[2017-10-06] MEDS: SODIUM CHLORIDE 0.9%/KCL 20 MEQ/1,000 ML INFUS.BAG IV SCH (20:09)
[2017-10-06] MEDS: ATORVASTATIN CA 10 MG TABLET (FP) PO SCH (22:06)
[2017-10-07] MEDS ORDERED: PT OWN MED DRAWER 7, Y5N ONE ×4 (01:18→21:46)
[2017-10-07] MEDS: CEFEPIME 1 GM in DEXTROSE 5%-WATER - 100 ML IVPB SCH (01:28)
[2017-10-07] MEDS: VANCOMYCIN 1 GRAM (PRE-DOCKED) 1,000 MG/250 ML BAG IVPB SCH (02:20)
[2017-10-07] MEDS: INSULIN SLIDING SCALE (NOVOLOG) 1 VIAL SQ SCH ×4 (06:43→21:37)
[2017-10-07 08:13] LABS: INR 2.44 (0.82-1.09); PROTHROMBIN TIME (PATIENT) 26.8 SEC (10.2-13.0)
[2017-10-07 08:16] LABS: MCH 31.3 pg (25.7-33.7); MCHC 34.3 g/dl (32.0-35.9); MEAN CELL VOLUME 91.2 fl (80-96); MEAN PLT VOLUME 8.7 fl (7.5-11.1); PLATELET COUNT 63 K/MM3 (134-434); RDW 12.8 % (11.9-15.9); WHITE BLOOD COUNT 7.6 K/mm3 (4.0-10.8)
[2017-10-07 08:19] LABS: ANION GAP 8 (8-16); CALCIUM 7.6 mg/dl (8.4-10.2); CO2 18 mmol/L (22-28); CREATININE 0.8 mg/dl (0.6-1.3); GLUCOSE,RANDOM 226 mg/dl (74-106); MAGNESIUM 2.2 mg/dL (1.8-2.4); PHOSPHOROUS 1.7 mg/dl (2.5-4.6)
--- NOTE | 2017-10-07 08:55 | PN ---
Progress Note, Physician - Current Medication List Current Medications: Active Medications Acetaminophen (Tylenol -) 650 mg PO Q4H PRN PRN Reason: FEVER OR PAIN Last Admin: 10/06/17 08:52 Dose: 650 mg Albuterol Sulfate (Ventolin 0.083% Nebulizer Soln -) 1 amp NEB Q4H PRN PRN Reason: SHORT OF BREATH/WHEEZING Atorvastatin Calcium (Lipitor -) 10 mg PO HS REPLACED BY [facility] Last Admin: 10/06/17 22:06 Dose: 10 mg Famotidine (Pepcid -) 20 mg PO BID REPLACED BY [facility] Last Admin: 10/06/17 22:06 Dose: 20 mg Vancomycin HCl (Vancomycin (Pre-Docked)) 1,000 mg in 250 mls @ 200 mls/hr IVPB BID@0300,1500 REPLACED BY [facility] Last Admin: 10/07/17 02:20 Dose: 200 mls/hr Cefepime HCl 1 gm/ Dextrose 100 mls @ 200 mls/hr IVPB Q8H-IV REPLACED BY [facility] Last Admin: 10/07/17 01:28 Dose: 200 mls/hr Potassium Chloride/Sodium Chloride (Ns+20 Meq Kcl -) 20 meq in 1,000 mls @ 100 mls/hr IV ASDIR REPLACED BY [facility] Last Admin: 10/06/17 20:09 Dose: Not Given Sodium Chloride (Normal Saline -) 1,000 mls @ 50 mls/hr IV ASDIR REPLACED BY [facility] Last Admin: 10/06/17 20:09 Dose: Not Given Insulin Aspart (Novolog Vial Sliding Scale -) 1 vial SQ HS KRISTEN PRN Reason: Protocol Last Admin: 10/06/17 22:32 Dose: Not Given Insulin Aspart (Novolog Vial Sliding Scale -) 1 vial SQ TIDAC KRISTEN PRN Reason: Protocol Last Admin: 10/07/17 06:43 Dose: 3 units Metoprolol Succinate (Toprol Xl -) 50 mg PO DAILY REPLACED BY [facility] Last Admin: 10/06/17 09:43 Dose: 50 mg Polyethylene Glycol (Miralax (For Daily Use) -) 17 gm PO DAILY REPLACED BY [facility] Last Admin: 10/06/17 09:38 Dose: Not Given Warfarin Sodium (Coumadin -) 4 mg PO DAILY@1800 REPLACED BY [facility] Last Admin: 10/06/17 17:52 Dose: 4 mg - Objective Vital Signs: Vital Signs Temperature 99.9 F H 10/07/17 06:10 Pulse Rate 71 10/07/17 05:17 Respiratory Rate 17 10/07/17 05:17 Blood Pressure 125/60 10/07/17 05:17 O2 Sat by Pulse Oximetry (%) 95 10/07/17 08:18 Labs: CBC, BMP 10/07/17 07:30 INR, PTT INR 2.44 (0.82-1.09) H 10/07/17 07:30
--- NOTE | 2017-10-07 09:00 | PN ---
Progress Note, Physician History of Present Illness: Awake, alert Seated in bed No complaints offerred No c/o chest pain/ dyspnea Temps low grade BC MSSA - Current Medication List Current Medications: Active Medications Acetaminophen (Tylenol -) 650 mg PO Q4H PRN PRN Reason: FEVER OR PAIN Last Admin: 10/06/17 08:52 Dose: 650 mg Albuterol Sulfate (Ventolin 0.083% Nebulizer Soln -) 1 amp NEB Q4H PRN PRN Reason: SHORT OF BREATH/WHEEZING Atorvastatin Calcium (Lipitor -) 10 mg PO HS [facility] Last Admin: 10/06/17 22:06 Dose: 10 mg Famotidine (Pepcid -) 20 mg PO BID [facility] Last Admin: 10/06/17 22:06 Dose: 20 mg Vancomycin HCl (Vancomycin (Pre-Docked)) 1,000 mg in 250 mls @ 200 mls/hr IVPB BID@0300,1500 [facility] Last Admin: 10/07/17 02:20 Dose: 200 mls/hr Cefepime HCl 1 gm/ Dextrose 100 mls @ 200 mls/hr IVPB Q8H-IV [facility] Last Admin: 10/07/17 01:28 Dose: 200 mls/hr Potassium Chloride/Sodium Chloride (Ns+20 Meq Kcl -) 20 meq in 1,000 mls @ 100 mls/hr IV ASDIR [facility] Last Admin: 10/06/17 20:09 Dose: Not Given Sodium Chloride (Normal Saline -) 1,000 mls @ 50 mls/hr IV ASDIR [facility] Last Admin: 10/06/17 20:09 Dose: Not Given Insulin Aspart (Novolog Vial Sliding Scale -) 1 vial SQ HS [facility] PRN Reason: Protocol Last Admin: 10/06/17 22:32 Dose: Not Given Insulin Aspart (Novolog Vial Sliding Scale -) 1 vial SQ TIDAC [facility] PRN Reason: Protocol Last Admin: 10/07/17 06:43 Dose: 3 units Metoprolol Succinate (Toprol Xl -) 50 mg PO DAILY [facility] Last Admin: 10/06/17 09:43 Dose: 50 mg Polyethylene Glycol (Miralax (For Daily Use) -) 17 gm PO DAILY [facility] Last Admin: 10/06/17 09:38 Dose: Not Given Warfarin Sodium (Coumadin -) 4 mg PO DAILY@1800 [facility] Last Admin: 10/06/17 17:52 Dose: 4 mg - Objective Vital Signs: Vital Signs Temperature 99.9 F H 10/07/17 06:10 Pulse Rate 71 10/07/17 05:17 Respiratory Rate 17 10/07/17 05:17 Blood Pressure 125/60 10/07/17 05:17 O2 Sat by Pulse Oximetry (%) 95 10/07/17 08:18 Constitutional: Yes: No Distress Eyes: Yes: Conjunctiva Clear Cardiovascular: Yes: Regular Rate and Rhythm, Murmur, S1, S2 Respiratory: Yes: Other (+ crepitations at bases bilaterally) Gastrointestinal: Yes: Normal Bowel Sounds, Soft. No: Tenderness Edema: No Integumentary: Yes: Venous Stasis Changes Labs: CBC, BMP 10/07/17 07:30 INR, PTT INR 2.44 (0.82-1.09) H 10/07/17 07:30 Assessment/Plan MSSA bacteremia/ sepsis R/O prosthetic valve endocarditis Diabetes mellitus Hyponatremia Thrombocytopenia Substitute nafcillin 2gm IVPB q4h Repeat BC pending For ASHLEY
--- NOTE | 2017-10-07 09:04 | DS ---
Physical Exam: SUBJECTIVE: Patient seen and examined, reports feeling better, denies any chest pain or shortness of breath, tmax of 100.5. patient's brother, Hima Ocampo is requesting transfer to [facility] for further management, as per son (Hima) patient's ios architect is Dr Regan Randolph. 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 Son states he spoke to father Thursday evening and he was fine/in his usual state of health. Pt denies any other complaints. Patient denies any cough, congestion , frequency, dysuria, back pain, flank pain, abdominal pain, nausea, vomiting or diarrhea. ER course was notable for: (1) WBC 9.4, 22% bands (2) Temp 101.5 (3) BGM 276 Vital Signs Period Temp Pulse Resp BP Sys/Tan Pulse Ox Last 24 Hr 98.9 F-100.7 F 71-78 16-20 115-142/52-60 95-96 PHYSICAL EXAM GENERAL: The patient is awake, alert, and oriented times person, in no acute distress. HEAD: Normal with no signs of trauma. EYES: PERRL, extraocular movements intact, sclera anicteric, conjunctiva clear. No ptosis. ENT: Ears normal, nares patent, poor dentiion noted, oropharynx clear without exudates, moist mucous membranes. NECK: Trachea midline, full range of motion, supple. LUNGS: Breath sounds equal, clear to auscultation bilaterally, no wheezes, no crackles, no accessory muscle use. HEART: Regular rate and rhythm, S1, S2, 3/6 systolic murmur, rub or gallop. ABDOMEN: Soft, nontender, nondistended, normoactive bowel sounds, no guarding, no rebound, no hepatosplenomegaly, no masses. EXTREMITIES: 2+ pulses, warm, well-perfused, no edema. NEUROLOGICAL: Cranial nerves II through XII grossly intact. Normal speech, gait not observed. PSYCH: Normal mood, normal affect. SKIN: Warm, dry, normal turgor, crusted papules to distal lower extremities, papules to lower back, no rashes or lesions noted LABS Laboratory Results - last 24 hr CBC WBC 7.6 K/mm3 (4.0-10.8) 10/07/17 07:30 RBC 3.71 M/mm3 (4.00-5.60) L 10/07/17 07:30 Hgb 11.6 GM/dl (11.7-16.9) L 10/07/17 07:30 Hct 33.8 % (35.4-49) L 10/07/17 07:30 MCV 91.2 fl (80-96) 10/07/17 07:30 MCH 31.3 pg (25.7-33.7) 10/07/17 07:30 MCHC 34.3 g/dl (32.0-35.9) 10/07/17 07:30 RDW 12.8 % (11.9-15.9) 10/07/17 07:30 Plt Count 63 K/MM3 (134-434) L D 10/07/17 07:30 MPV 8.7 fl (7.5-11.1) 10/07/17 07:30 Neutrophils % No Result Required. 10/07/17 07:30 Neutrophils % (Manual) 71.0 % (42.8-82.8) 10/04/17 22:05 Band Neutrophils % 22.0 % (0-10) H 10/04/17 22:05 Lymphocytes % No Result Required. 10/07/17 07:30 Lymphocytes % (Manual) 5.0 % (8-40) L 10/04/17 22:05 Monocytes % 5.1 % (3.8-10.2) 10/06/17 08:10 Monocytes % (Manual) 1 % (3.8-10.2) L 10/04/17 22:05 Eosinophils % 0.2 % (0-4.5) D 10/06/17 08:10 Eosinophils % (Manual) 1.0 % (0-4.5) 10/04/17 22:05 Basophils % 0.2 % (0-2.0) D 10/06/17 08:10 ESR 81 mm/hr (0-20) H 10/05/17 07:30 CMP Sodium 127 mmol/L (136-145) L 10/07/17 07:30 Potassium 4.2 mmol/L (3.5-5.1) 10/07/17 07:30 Chloride 101 mmol/L (98-107) 10/07/17 07:30 Carbon Dioxide 18 mmol/L (22-28) L 10/07/17 07:30 Anion Gap 8 (8-16) 10/07/17 07:30 BUN 22 mg/dl (7-18) H D 10/07/17 07:30 Creatinine 0.8 mg/dl (0.6-1.3) 10/07/17 07:30 Creat Clearance w eGFR > 60 (>60) 10/06/17 08:10 POC Glucometer 223 UNITS (80-120) 10/07/17 06:41 Random Glucose 226 mg/dl (74-106) H 10/07/17 07:30 Serum Osmolality 279 mosm/kg (278-305) 10/05/17 18:00 Lactic Acid 2.0 mmol/L (0.4-2.0) 10/05/17 01:17 Calcium 7.6 mg/dl (8.4-10.2) L 10/07/17 07:30 Phosphorus 1.7 mg/dl (2.5-4.6) L D 10/07/17 07:30 Magnesium 2.2 mg/dL (1.8-2.4) 10/07/17 07:30 Total Bilirubin 1.1 mg/dl (0.2-1.0) H D 10/06/17 08:10 AST 38 U/L (10-42) D 10/06/17 08:10 ALT 30 U/L (10-40) D 10/06/17 08:10 Alkaline Phosphatase 69 U/L (32-92) 10/06/17 08:10 Creatine Kinase 101 IU/L (39-308) 10/06/17 08:10 Troponin I 0.05 ng/ml (0.03-0.50) 10/06/17 08:10 C-Reactive Protein 15.9 MG/DL (0.00-0.3) H 10/05/17 07:30 B-Natriuretic Peptide 2407.21 pg/ml (5-125) H 10/06/17 08:10 Total Protein 6.4 g/dl (6.4-8.3) 10/06/17 08:10 Albumin 2.6 g/dl (3.5-5.0) L 10/06/17 08:10 Cortisol AM Sample 26.5 ug/dL (.) 10/06/17 08:10 Microbiology 10/04/17 22:05 Urine - Urine Clean Catch Urine Culture - Final Staphylococcus Aureus 10/04/17 22:05 Blood - Peripheral Venous Blood Culture - Final Staphylococcus Aureus 10/04/17 22:05 Blood - Peripheral Venous Blood Culture - Preliminary Presumptive Mssa (Pbp2a Neg) 10/05/17 00:20 Nasopharyngeal Swab Influenza Types A,B Antigen (JERONIMO) - Final 10/05/17 00:20 Nasopharyngeal Swab - Final ekg sinus rhythm with sinus arrhythmia with 1st degree AV block vent rate 68, QTC 489-prolonged ST and marked T wave abnormality: TWI lead 2,3,aVF, V3-V6 Radiology Reports CXR-no obvious infiltrates or effusions ct of chest: bilateral opacities in both lung bases, likely atelactasis, small left pleural effusion ct of abdomen/pelvis: hepatic steatiosis, enlarged prostate, moderate fecal retention. echo 10/05/17, lvef 55-60%, moderate aortic stenosis, bioprosthetic mitral valve ? artifact density can not exclude vegetation PREHOSPITAL COURSE: Patient is a 72 y/o male that reports fatigue and fever since 10/03/17 HOSPITAL COURSE: Patient was admitted to telemetry unit for further evaluation of fever of unknown origin. Patient was treated with cefepime and vancomycin (10/05/17-) due to bioprosthetic valve. Dr Harry, infectious disease physician was consulted. Blood cultures x 2 resulted as positive for staph aureus. ESR and crp was noted to be elevated and Echo was completed which is suspicous for vegetation to mitral valve. Dr Guzman,ios architect was consulted and recommended ASHLEY. Patient has a past medical history of paroxysmal afib, toprol and coumadin was continued throughout admission. No telemetry events was noted. Case discussed with patient's daughter Reena. Daughter is requesting transfer to [facility] for further management because patient's ios architect, Dr Tish Randolph has been managing his care for the past 10 years as per the daughter. [facility] transfer contacted and case discussed with Dr Jewell, molded parts inspector and patient was accepted for transfer to [address] [place] [address] cardiac telemetry under the care of Dr Causey, ios architect. [address] Date of Admission:10/06/17 Date of Discharge: 10/07/17 Minutes to complete discharge: 45 Discharge Summary Reason For Visit: FEVER/HYPONATREMIA/HYPERGLYCEMIA Current Active Problems Aortic valve stenosis (Acute) Atrial fibrillation (Acute) Bacteremia (Acute) Bioprosthetic mitral valve replacement, current hospitalization (Acute) Diabetes mellitus (Acute) Fever (Acute) Fever, unknown origin (Acute) HTN (hypertension) (Acute) Hypercholesterolemia (Acute) Hyponatremia (Acute) Condition: Guarded - Instructions Referrals: Alan Carballo [Primary Care Provider] - Disposition: TRANSFER ACUTE CARE/OTHER HOSP - Home Medications Comprehensive Discharge Medication List: Ambulatory Orders Ibuprofen [Advil -] 400 mg PO BID PRN 10/04/17 Memantine HCl [Namenda Xr] 7 mg PO DAILY 10/04/17 Metformin HCl [Glucophage] 1,000 mg PO DAILY 10/04/17 Metoprolol Succinate [Toprol Xl -] 50 mg PO DAILY 10/04/17 Pravastatin Sodium [Pravachol (Nf)] 20 mg PO DAILY 10/04/17 Warfarin Na [Coumadin] 3 mg PO HS 10/04/17 This patient is new to me today: No Emergency Visit: Yes ED Registration Date: 10/06/17 Care time: The patient presented to the Emergency Department on the above date and was hospitalized for further evaluation of their emergent condition. Critical Care patient: Yes Total Critical Care Time (in minutes): 45 Critical Care Statement: The care of this patient involved high complexity decision making to prevent further life threatening deterioration of the patient 's condition and/or to evaluate & treat vital organ system(s) failure or risk of failure. - Discharge Referral Referred to [facility] No
[2017-10-07] MEDS ORDERED: SODIUM PHOSPHATE - 21 MM in SODIUM CHLORIDE 250 ML IVPB ONE (09:42)
[2017-10-07 09:52] LABS: PLATELET ESTIMATE ADEQUATE
[2017-10-07] MEDS: NAFCILLIN - 2 GM in SODIUM CHLORIDE 100 ML IVPB SCH ×5 (10:19→21:46)
[2017-10-07] MEDS: METOPROLOL SUCCINATE 50 MG TAB.SR.24H (FP) PO SCH (10:20)
[2017-10-07] MEDS: POLYETHYLENE GLYCOL 3350 119 GM BTL PO SCH (10:20)
[2017-10-07] MEDS: FAMOTIDINE 20 MG TABLET PO SCH ×2 (10:20→21:32)
[2017-10-07] MEDS: ACETAMINOPHEN 325 MG TABLET (FP) PO PRN ×2 (10:25→20:57)
[2017-10-07] MEDS: WARFARIN NA 2 MG TABLET (UD) PO SCH (18:41)
[2017-10-07] MEDS: ATORVASTATIN CA 10 MG TABLET (FP) PO SCH (21:32)
[2017-10-07] MEDS: SODIUM CHLORIDE 0.9%/KCL 20 MEQ/1,000 ML INFUS.BAG IV SCH (21:38)
[2017-10-07 22:08] VITALS: BP 100/56; PULSE 73; TEMP 101.7
== END 2017-10-07 22:10 | disposition short-term general hospital (02) | DRG 314 ==
LOC: FER 21:47 → FM/S 23:18 → OBSVTOIN 10-06 09:57 → FM/S 10-06 11:18
PROVIDERS: ADMIT Internal Medicine; ATTEND Nurse Practitioner Family
DX: T82.6XXA Infection and inflammatory reaction due to cardiac valve prosthesis, initial encounter (principal); I33.0 Acute and subacute infective endocarditis; A41.01 Sepsis due to Methicillin susceptible Staphylococcus aureus; E87.1 Hypo-osmolality and hyponatremia; I48.92 Unspecified atrial flutter; J90 Pleural effusion, not elsewhere classified; I48.0 Paroxysmal atrial fibrillation; E11.65 Type 2 diabetes mellitus with hyperglycemia; Z79.84 Long term (current) use of oral hypoglycemic drugs; I10 Essential (primary) hypertension; E78.5 Hyperlipidemia, unspecified; Z79.01 Long term (current) use of anticoagulants; Z95.0 Presence of cardiac pacemaker; I44.0 Atrioventricular block, first degree; Z87.891 Personal history of nicotine dependence; E86.1 Hypovolemia; D69.6 Thrombocytopenia, unspecified; F09 Unspecified mental disorder due to known physiological condition; Z95.3 Presence of xenogenic heart valve; K76.0 Fatty (change of) liver, not elsewhere classified
CPT/HCPCS: 36415; 71010-TC; 71250-TC; 74176-TC; 80048; 80053; 81003; 81015; 82436; 82533; 82550; 82570; 83605; 83735; 83880; 83930; 83935; 84100; 84300; 84484; 85025; 85610; 85651; 86140; 87040; 87086; 87186; 87804; 93005; 93306-TC; 94010; 97116-GP; 97162-GP; 99283-25; G0378